=== PATIENT | male | born 1990 | race Caucasian/White ===

== ENCOUNTER 2023-10-15 10:18 | Emergency (ER) | payer BC, OTHER ==
[2023-10-15 10:27] VITALS: BP 110/60; PULSE 62; RESP 15; TEMP 98.4; BMI 23.7
[2023-10-15] MEDS ORDERED: KETOROLAC TROMETHAMINE 15 MG/ML VIAL ONE (10:36)
[2023-10-15] MEDS: KETOROLAC TROMETHAMINE 15 MG/ML VIAL IM ONE (10:47)
== END 2023-10-15 11:14 | disposition home or self-care (01) ==
LOC: FER 10:18
PROC: 3E0233Z Introduction of Anti-inflammatory into Muscle, Percutaneous Approach (ICD-10-PCS; principal; 2023-10-15)
DX: M25.561 Pain in right knee (principal)
CPT/HCPCS: 73562-TC-RT-FY; 99284-25